=== PATIENT | male | born 1970 | race Two or more races ===

== ENCOUNTER 2024-10-17 14:40 | Emergency (ER) | payer SELFPAY ==
[2024-10-17 15:02] VITALS: BP 150/95; PULSE 94; RESP 20; TEMP 37.1; O2SAT 95
--- NOTE | 2024-10-17 15:06 | XR_ITS ---
Examination: Foot, right, 3 views Technique: AP, oblique, lateral views foot, 3 views Date and time of exam: October 17, 2024 1407 hours INDICATIONS: Right foot pain beginning 4 days ago. FINDINGS: Moderate osteopenia. Soft tissue vascular calcification No fracture. No cecil cortical bone destruction IMPRESSION: No fracture. No cecil cortical bone destruction
[2024-10-17] MEDS: HYDROcodone/APAP 5/325 TABLET 1 TAB PO (15:19)
--- NOTE | 2024-10-17 15:30 | PD.EDLOWEX ---
Lower Extremity Injury RME/HPI General Chief Complaint: Extremity Injury, Lower Stated Complaint: PAIN IN R) FOOT SINCE 10/13. Time Seen by Provider: 10/17/24 14:58 Source: patient Arrival date/time: 10/17/24 14:40 54-year-old male with no known medical history presents to the emergency room with chief complaint of pain and tenderness to the right foot x 4 days Mode of arrival: ambulatory Limitations: no limitations Related Data Allergies Allergy/AdvReac Type Severity Reaction Status Date / Time No Known Allergies Allergy Verified 10/17/24 14:45 Review of Systems Review of Systems Systems Reviewed: All systems reviewed, normal except as documented Constitutional Constitutional: Reports system reviewed and no additional complaints, except as documented, Denies fatigue, Denies fever(s), Denies headache(s) and Denies weakness Eyes Eyes: Reports system reviewed and no additional complaints, except as documented, Denies blurry vision and Denies change in vision ENT Ears, Nose, Mouth, and Throat: Reports system reviewed and no additional complaints, except as documented, Denies otalgia, Denies headache(s), Denies nasal congestion, Denies throat swelling and Denies vertigo Cardiovascular Cardiovascular: Reports system reviewed and no additional complaints, except as documented, Denies chest pain, Denies dyspnea and Denies dyspnea on exertion Respiratory Respiratory: Reports system reviewed and no additional complaints, except as documented, Denies chest congestion, Denies cough, Denies dyspnea, Denies dyspnea on exertion and Denies wheezing Gastrointestinal Gastrointestinal: Reports system reviewed and no additional complaints, except as documented, Denies abdominal pain, Denies cramping, Denies nausea and Denies vomiting Genitourinary Genitourinary: Reports system reviewed and no additional complaints, except as documented, Denies dysuria and Denies hematuria Musculoskeletal Musculoskeletal: Reports system reviewed and no additional complaints, except as documented, Reports abnormal gait, Reports arthralgias and Denies back pain Integumentary/Breasts Skin/Breast: Reports system reviewed and no additional complaints, except as documented and Denies wounds Neurologic Neurologic: Reports system reviewed and no additional complaints, except as documented, Reports abnormal gait, Denies confusion, Denies headache(s), Denies lack of coordination, Denies vertigo and Denies weakness Psychiatric Psychiatric: Reports system reviewed and no additional complaints, except as documented, Denies anxiety, Denies confusion, Denies depression, Denies paranoia, Denies suicidal ideation and Denies tactile hallucinations Endocrine Endocrine: Reports system reviewed and no additional complaints, except as documented and Denies fatigue Hematologic/Lymphatic Hematologic/Lymphatic: Reports system reviewed and no additional complaints, except as documented and Denies lymphadenopathy Allergic/Immunologic Allergic/Immunologic: Reports system reviewed and no additional complaints, except as documented, Denies throat swelling, Denies urticaria and Denies wheezing Past Medical History Social History SMOKING STATUS: Never smoker ED Exam General Limitations: Present no limitations General appearance: Present alert and in no apparent distress Head Head exam: Present atraumatic Eye Eye exam: Present normal appearance, PERRL and EOMI ENT ENT exam: Present normal exam, normal oropharynx and mucous membranes moist Neck Neck exam: Present normal inspection, full ROM and trachea midline Chest Chest inspection: Present normal inspection and symmetric chest wall rise Respiratory Respiratory exam: Present normal lung sounds bilaterally Cardiovascular Cardiovascular exam: Present regular rate, normal rhythm and normal heart sounds Abdominal Exam Abdominal exam: Present soft and normal bowel sounds Extremities Exam Extremities exam: Present normal inspection and full ROM Expanded Lower Extremity Exam Hip/Pelvis exam: Present normal inspection Upper leg exam: Present normal inspection Knee exam: Present normal inspection Lower leg exam: Present normal inspection Ankle exam: Present normal inspection Foot/toe exam: Present full ROM and tenderness; Absent swelling, deformity, crepitus, dislocation or erythema Back Exam Back exam: Present normal inspection and full ROM Neurological Exam Neurological exam: Present alert, oriented X3 and CN II-XII intact Psychiatric Psychiatric exam: Present normal affect and normal mood Skin Skin exam: Present warm, dry, intact and normal color Course Quality Measures none Orders Category Date Time Status XR foot comp RT min 3V Stat Exams 10/17/24 15:06 Completed HYDROcodone*/APAP 5/325 [[place] 5/325] Med 10/17/24 15:07 Discontinued 1 tab PO X1 ONE Vital Signs Vital signs: Vital Signs Temperature 98.8 F 10/17/24 15:02 Pulse Rate 94 10/17/24 15:02 Respiratory Rate 20 10/17/24 15:02 Blood Pressure 150/95 H 10/17/24 15:02 Pulse Oximetry (%) 95 10/17/24 15:02 Oxygen Delivery Method Room Air 10/17/24 15:02 O2 saturation 95% within normal limits Extremity Injury, Lower MDM Narrative MDM Narrative:: 54-year-old male with no known medical history presents to the emergency room with chief complaint of pain and tenderness to the right foot x 4 days Patient is hemodynamically stable and in no apparent distress Physical examination shows tenderness and pain to the top area of the patient's foot. Patient denies any trauma there was no fall there is no erythema cellulitis or warmth to the touch there is no swelling. X-ray of the foot was completed and was negative for any acute fracture or dislocation. Patient was discharged and educated to follow-up with primary care provider in the next 24 to 48 hours and return to the emergency room for any evidence of worsening signs or symptoms Patient data External records reviewed:: [facility] previous records Clinical information provided by:: patient Social determinants that could affect healthcare access:: none Patient has the following chronic illnesses:: No chronic illness How is presenting disease/condition affected by chronic disease/condition?: no chronic disease Evaluation data The following diagnostics were reviewed and interpreted by me:: lab results and radiology exam(s) Lab and/or radiology exams considered but not ordered:: Labs and radiology exams considered and ordered Interpretation Summary: X-ray foot-FINDINGS: Moderate osteopenia. Soft tissue vascular calcification No fracture. No cecil cortical bone destruction IMPRESSION: No fracture. No cecil cortical bone destruction Medications / Prescriptions Medications or Prescriptions considered but not ordered:: N/A Medication administrations:: Medication Administration History Discontinued Medications Hydrocodone Bitart/Acetaminophen (Hydrocodone/Apap 5/325 Tablet) 1 tab PO X1 ONE Stop: 10/17/24 15:08 Last Admin: 10/17/24 15:19 Dose: 1 tab Documented By: KF medication given Consultations Consultation(s) initiated? (list below): No Diagnosis Extremity Injury, Lower Differential Diagnosis: ankle sprain and strain, ankle fracture and other (Fracture of the foot right foot pain) Most likely diagnosis given after review of the tests above:: Right foot pain Admission Indicated Admission indicated?: not indicated Admission Request Was there a request for admission?: No Disposition Plan Disposition Plan: Discharge Discharge Attestation Discharge Attestation: The patient and all family members were given an opportunity to ask questions and understood the discharge instructions. Discharge instructions specifically effects, indications for sooner follow up or return to the emergency department, and the expected course of current diagnosis. Patient condition: Stable Discharge Plan Plan Patient Disposition: HOME (Self Care) Disposition Comment: Stable Problem List Clinical Impression: Acute foot pain Patient/Caregiver Discharge Instructions Education Materials: ED Myalgias Additional Instructions: Por favor, consulte con rodriguez m?dico de cabecera en las pr?ximas 24 a 40 horas. Se realiz? joey radiograf?a de rodriguez pie derecho y el resultado fue negativo para cualquier fractura o luxaci?n aguda. Si observa cualquier signo de empeoramiento de los signos o s?ntomas, acuda a urgencias de inmediato. Print Language: Turkish Stand Alone Forms: Nydia Award Info., Patient Portal Info Letter PA/CONSTRUCTION EXECUTIVE Supervising Physician PA/CONSTRUCTION EXECUTIVE Supervising Physician: Dr. Dumont
== END 2024-10-17 15:38 | disposition home or self-care (01) ==
LOC: SERX 15:56
PROVIDERS: Emergency Provider Emergency Medicine
DX: M79.671 Pain in right foot (principal)
CPT/HCPCS: 73630; 99283; A9270

== ENCOUNTER → 2025-06-05 | Outpatient (CLI) | payer MEDICAID, SELFPAY ==
--- NOTE | 2025-06-05 16:00 | XR_ITS ---
EXAMINATION: Bilateral wrist 6 views TECHNIQUE: AP oblique lateral each wrist total 6 views Date and time: #3, 2024, 1653 hours INDICATIONS: Bilateral wrist pain beginning 1 year ago. FINDINGS: Bilateral mild narrowing radiocarpal intercarpal and first carpal metacarpal joints No erosive arthritis. No fractures IMPRESSION: Bilateral mild narrowing radiocarpal intercarpal and first carpometacarpal joints No erosive arthritis
--- NOTE | 2025-06-05 16:00 | XR_ITS ---
Examination: Bilateral hands, 6 views. Technique: AP, Oblique, Lateral each hand total 6 views Date and time of exam: June 05, 2025, 1650 hours INDICATIONS: Bilateral hand pain beginning 1 year ago. 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
== END | disposition home or self-care (01) ==
PROVIDERS: PCP Nurse Practitioner Family; Referring Provider Nurse Practitioner Gerontology; Visit Provider Nurse Practitioner Gerontology
DX: M19.042 Primary osteoarthritis, left hand (principal); M19.041 Primary osteoarthritis, right hand; M18.0 Bilateral primary osteoarthritis of first carpometacarpal joints; M25.832 Other specified joint disorders, left wrist; M25.831 Other specified joint disorders, right wrist
CPT/HCPCS: 73110; 73130